=== PATIENT | female | born 1995 | race Caucasian/White ===

== ENCOUNTER 2021-10-02 00:24 | Emergency (ER) | payer SELFPAY ==
[~2021-10-02] VITALS: Ht 160 cm; Wt 96.7 kg
[2021-10-02 00:25] VITALS: BP 107/72
[2021-10-02] MEDS ORDERED: PRAZ1CAP PO (01:17)
[2021-10-02] MEDS ORDERED: BISO5TAB14 PO (01:17)
[2021-10-02] MEDS ORDERED: CLON2TAB14 PO (01:17)
== END 2021-10-02 05:50 | disposition left against medical advice (07) ==
LOC: M ED 00:24
DX: Z53.21 Procedure and treatment not carried out due to patient leaving prior to being seen by health care provider (principal)

== ENCOUNTER 2022-01-18 19:25 | Emergency (ER) | payer OTHER, SELFPAY ==
[~2022-01-18] VITALS: Ht 165.1 cm; Wt 95.5 kg
[~2022-01-18 19:25] MED LIST: BISO5TAB14 PO; CLON2TAB14 PO; PRAZ1CAP PO
[2022-01-18 22:14] LABS: BASO % 0.6 % (0.0-1.0); EOS # 0.1 10^3/uL (0.0-0.5); EOS % 1.3 % (0.0-3.0); HEMATOCRIT 38.3 % (36.0-47.0); HEMOGLOBIN 13.1 g/dl (12.0-15.5); LYMPH # 1.9 10^3/uL (1.5-5.0); LYMPH % 27.6 % (24.0-44.0); MEAN CORPUSCULAR HEMOGLOBIN 32.4 pg (27.0-33.0); MEAN CORPUSCULAR HGB CONC 34.2 g/dl (32.0-36.5); MEAN CORPUSCULAR VOLUME 94.8 fl (80.0-96.0); MONO # 0.6 10^3/uL (0.0-0.8); MONO % 8.2 % (2.0-8.0); NEUTROPHILS # 4.3 10^3/uL (1.5-8.5); NEUTROPHILS % 62.2 % (36.0-66.0); PLATELET COUNT, AUTOMATED 233 10^3/uL (150-450); RED BLOOD COUNT 4.04 10^6/uL (4.00-5.40); WHITE BLOOD COUNT 6.8 10^3/uL (4.0-10.0)
[2022-01-18 22:46] LABS: BLOOD UREA NITROGEN 12 MG/DL (7-18); CALCIUM LEVEL 9.5 MG/DL (8.5-10.1); CARBON DIOXIDE LEVEL 26 MEQ/L (21-32); CHLORIDE LEVEL 110 MEQ/L (98-107); CREATININE FOR GFR 0.65 MG/DL (0.55-1.30); GLOMERULAR FILTRATION RATE > 60.0 (>60); GLUCOSE, FASTING 111 MG/DL (70-100); SODIUM LEVEL 143 MEQ/L (136-145)
[2022-01-18] MEDS ORDERED: NS 1,000 ML IV ONE (23:40)
[2022-01-19 01:52] VITALS: BP 116/62
== END 2022-01-19 01:54 | disposition home or self-care (01) ==
LOC: M ED 19:25
DX: R42 Dizziness and giddiness (principal)

== ENCOUNTER 2022-07-18 10:54 | Emergency (ER) | payer OTHER ==
[~2022-07-18] VITALS: Ht 162.6 cm; Wt 95.0 kg
[2022-07-18 10:55] VITALS: BP 139/92
== END 2022-07-18 16:42 | disposition left against medical advice (07) ==
LOC: M ED 10:54
DX: Z53.21 Procedure and treatment not carried out due to patient leaving prior to being seen by health care provider (principal)

== ENCOUNTER 2023-01-20 20:42 | Emergency (ER) | payer OTHER ==
[~2023-01-20] VITALS: Ht 162.6 cm; Wt 95.6 kg
[2023-01-20 20:43] VITALS: TEMP 97.8
[2023-01-21 02:08] VITALS: BP 115/75; O2SAT 100
== END 2023-01-21 03:25 | disposition left against medical advice (07) ==
LOC: M ED 20:42
DX: R10.9 Unspecified abdominal pain (principal); Z53.21 Procedure and treatment not carried out due to patient leaving prior to being seen by health care provider

== ENCOUNTER → 2023-05-03 | Outpatient (REF) | payer OTHER | LOC: M LAB REF 16:51 | PROVIDERS: ATTEND Physician Assistant | DX: B34.9 Viral infection, unspecified (principal) ==